=== PATIENT | male | born 1970 | race Caucasian/White ===

== ENCOUNTER 2020-10-22 09:26 | Emergency (ER) | payer MEDICAID ==
[~2020-10-22] VITALS: Ht 180.3 cm; Wt 104.8 kg
[2020-10-22 09:33] VITALS: BP 110/56
--- NOTE | 2020-10-22 09:58 | NUR ---
received care of pt c/o mid-abdominal pain with decreased appetite, weakness & chills x 6 days. Med Hx of hernia, asthma. NKA.
[2020-10-22 12:30] VITALS: BP 110/56
--- NOTE | 2020-10-22 12:30 | NUR ---
Patient discharged with v/s stable. Written and verbal after care instructions given and explained. Patient alert, oriented and verbalized understanding of instructions. Ambulatory with steady gait. All questions addressed prior to discharge. ID band removed. Patient advised to follow up with PMD. Rx of Albuterol, MiraLax, Mineral oil given. Patient educated on indication of medication including possible reaction and side effects. Opportunity to ask questions provided and answered.
== END 2020-10-22 12:30 | disposition home or self-care (01) ==
LOC: MED 09:26
DX: K59.00 Constipation, unspecified (principal); J45.909 Unspecified asthma, uncomplicated; F17.200 Nicotine dependence, unspecified, uncomplicated
CPT/HCPCS: 74022; 99283